=== PATIENT | male | born 1990 | race Caucasian/White ===

== ENCOUNTER 2019-12-04 01:33 | Emergency (ER) | payer SELFPAY ==
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
[2019-12-04 02:06] VITALS: BP 168/114; TEMP 98.7; O2SAT 98
== END 2019-12-04 01:55 | disposition left against medical advice (07) ==
LOC: ER 01:33
DX: S49.91XA Unspecified injury of right shoulder and upper arm, initial encounter (principal); R07.9 Chest pain, unspecified; F10.129 Alcohol abuse with intoxication, unspecified; M54.2 Cervicalgia; Z53.29 Procedure and treatment not carried out because of patient's decision for other reasons; V86.99XA Unspecified occupant of other special all-terrain or other off-road motor vehicle injured in nontraffic accident, initial encounter; Y92.9 Unspecified place or not applicable